=== PATIENT | female | born 1975 | race American Indian/Alaskan Native ===

== ENCOUNTER 2018-11-10 00:34 | Outpatient (CLI) | payer OTHER ==
[2018-11-10 02:18] VITALS: BP 138/88
== END 2018-11-10 03:30 | disposition left against medical advice (07) ==
LOC: TRG 00:34
PROVIDERS: ATTEND Obstetrics & Gynecology
DX: O47.1 False labor at or after 37 completed weeks of gestation (principal); Z3A.40 40 weeks gestation of pregnancy
CPT/HCPCS: 59025